=== PATIENT | male | born 2000 | race Hispanic/Latino ===

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

== ENCOUNTER 2022-05-14 13:57 | Emergency (ER) | payer MEDICAID ==
[~2022-05-14] VITALS: Ht 185.4 cm; Wt 93.0 kg
[2022-05-14] MEDS ORDERED: IBUPROFEN 200 MG TAB ONE (15:52)
[2022-05-14] MEDS ORDERED: IBUPROFEN 400 MG TABLET ONE (15:52)
[2022-05-14 16:01] VITALS: BP 134/72
[2022-05-14] MEDS ORDERED: IBUP-2070 PO (16:01)
== END 2022-05-14 16:08 | disposition home or self-care (01) ==
LOC: EDH 13:57
DX: S93.401A Sprain of unspecified ligament of right ankle, initial encounter (principal); X50.1XXA Overexertion from prolonged static or awkward postures, initial encounter; Y93.67 Activity, basketball; Y92.310 Basketball court as the place of occurrence of the external cause; Y99.8 Other external cause status
CPT/HCPCS: 73610; 73630